=== PATIENT | female | born 1995 | race Caucasian/White ===

== ENCOUNTER 2018-01-08 17:21 | Emergency (ER) | payer OTHER ==
[~2018-01-08] VITALS: Ht 165.1 cm; Wt 50.0 kg
[2018-01-08] MEDS ORDERED: PROZ10 PO (17:43)
[2018-01-08 18:34] LABS: BASOPHILS % (AUTO) 0.1 % (0.0-2.0); EOSINOPHILS % (AUTO) 0.5 % (1.0-6.0); HEMOGLOBIN 13.3 g/dL (12.0-16.0); LYMPHOCYTES # (AUTO) 0.7 K/uL (1.0-4.8); LYMPHOCYTES % (AUTO) 6.3 % (22.0-44.0); MEAN CORPUSCULAR HEMOGLOBIN 31.3 pg (26.0-34.0); MEAN CORPUSCULAR HGB CONC 34.1 G/dL (31.0-37.0); MEAN CORPUSCULAR VOLUME 92 fL (80-100); MONOCYTES # (AUTO) 0.7 K/uL (0.1-1.0); MONOCYTES % (AUTO) 6.3 % (2.0-9.0); NEUTROPHILS # (AUTO) 9.2 K/uL (1.8-7.7); PLATELET COUNT (AUTO) 287 K/uL (150-450); RED BLOOD CELL COUNT(AUTO) 4.25 MIL/uL (4.00-5.20); RED CELL DISTRIBUTION WIDTH 13.2 % (11.5-14.5)
[2018-01-08 18:35] LABS: ANION GAP 13 mmol/L (8-16); CALCIUM, TOTAL 8.8 mg/dL (8.8-10.5); CARBON DIOXIDE 25 mmol/L (22-29); CHLORIDE 105 mmol/L (98-107); CREATININE 0.84 mg/dL (0.60-1.30); GLOMERULAR FILTR. RATE CALC > 60 mL/min (>60); GLUCOSE,RANDOM 90 mg/dL (70-110); POTASSIUM 3.5 mmol/L (3.5-5.1); SODIUM SERUM 143 mmol/L (136-145); UREA NITROGEN, BLOOD 22 mg/dL (7-18)
[2018-01-08 18:36] LABS: NEUTROPHILS % (AUTO) 86.8 % (40.0-70.0)
[2018-01-08 18:41] LABS: ALANINE AMINOTRANSFERASE 28 U/L (12-78); ALBUMIN 4.1 g/dL (3.4-5.0); ALKALINE PHOSPHATASE 70 U/L (46-116); ASPARTATE AMINOTRANSFERASE 28 U/L (15-37); BILIRUBIN,TOTAL 0.5 mg/dL (0.1-1.0); TOTAL PROTEIN, SERUM 7.8 g/dL (6.4-8.2)
[2018-01-08 18:42] LABS: SALICYLATE < 2.8 mg/dL (2.8-20.0)
[2018-01-08 18:43] LABS: ACETAMINOPHEN < 2 mcg/mL (10-30)
[2018-01-08 18:55] LABS: PLATELET MORPHOLOGY COMMENT NORMAL
[2018-01-08] MEDS ORDERED: HALOPERIDOL LACTATE 5 MG/ML VIAL ONE (22:57)
[2018-01-08] MEDS ORDERED: LORazepam 2 MG/ML VIAL ONE (22:57)
[2018-01-08] MEDS ORDERED: DiphenhydrAMINE HCL 50 MG/ML VIAL ONE (22:57)
[2018-01-08] MEDS ORDERED: DiphenhydrAMINE HCL 50 MG/ML VIAL IM ONE (23:15)
[2018-01-08] MEDS ORDERED: HALOPERIDOL LACTATE 5 MG/ML VIAL IM ONE (23:15)
[2018-01-08] MEDS ORDERED: LORazepam 2 MG/ML VIAL IM ONE (23:15)
[2018-01-08 23:37] VITALS: BP 102/62
== END 2018-01-09 00:05 | disposition short-term general hospital (02) ==
LOC: EMS 17:22
DX: T43.222A Poisoning by selective serotonin reuptake inhibitors, intentional self-harm, initial encounter (principal); F41.9 Anxiety disorder, unspecified; F32.9 Major depressive disorder, single episode, unspecified; Z79.899 Other long term (current) drug therapy; Y92.89 Other specified places as the place of occurrence of the external cause
CPT/HCPCS: 36415; 80053; 84703; 85025; 93005; 96372; 99285; G0480 ×2; G0481; J1200; J1630; J2060